=== PATIENT | female | born 1945 | race Caucasian/White ===

== ENCOUNTER 2021-03-24 14:23 | Day surgery (SDCO) | payer OTHER ==
[~2021-03-24] VITALS: Ht 154.9 cm; Wt 94.4 kg
[~2021-03-24 14:23] MED LIST: ACCUPRIL 5MG TAB5 MG PO; ALLOPURINOL100 MG PO; ASPIRIN EC81 MG PO; DECARA1250 MCG PO; HUMULIN R100 UNIT/1 SC; HYDROCODON-ACE1 EAC2 PO; LANTUS **100 UNITS/ SC; LASIX20 MG PO; METOPROLOL SUCC25 MG PO; PRAVACHOL20 MG PO; TRULICITY1.5 MG/0.5 SC; ZESTRIL2.5 MG PO
[2021-03-24 15:50] LABS: BASOPHIL 0.4 % (0-2); EOSINOPHIL 1.5 % (0-7); HCT 38.3 % (37.0-47.0); HGB 11.6 g/dl (12.5-16.0); LYMPHOCYTE 19.9 % (15-48); MCH 26.9 pg (25.0-31.0); MCHC 30.3 g/dL (32.0-36.0); MCV 88.7 fL (78.0-100.0); MONOCYTE 7.3 % (0-12); MPV 10.8 fL (6.0-9.5); NEUTROPHIL 70.1 % (41-80); NRBC 0; PLT 279 K/uL (150-400); RBC 4.32 M/uL (4.20-5.40); RDW 16.4 % (11.5-14.0); WBC 11.9 K/uL (4.0-10.5)
[2021-03-24 16:09] LABS: BILIRUBIN NEGATIVE (NEGATIVE); BLOOD NEGATIVE Ery/uL (NEGATIVE); CLARITY HAZY (CLEAR); COLOR YELLOW (YELLOW); GLUCOSE (U) NORMAL (NORMAL); LEUKOCYTES TRACE Leu/uL (NEGATIVE); NITRITE NEGATIVE (NEGATIVE); PROTEIN NEGATIVE (NEGATIVE); SPECIFIC GRAVITY 1.025 (1.001-1.030); UROBILINOGEN 0.2 mg/dL (0.2-1.0); pH 5.5 (5.0-9.0)
[2021-03-24 16:12] LABS: PRO-BNP 198 pg/mL (<125)
[2021-03-24 16:18] LABS: ALBUMIN 2.7 g/dL (3.4-5.0); BILIRUBIN - TOTAL 0.5 mg/dL (0.2-1.0); BUN/CREAT RATIO (CALC) 23.7 RATIO; C-REACTIVE PROTEIN 0.9 mg/dL (<=0.90); CREATININE 1.77 mg/dL (0.51-0.95); GLOBULIN (CALCULATION) 4.7 g/dL; MAGNESIUM 2.2 mg/dL (1.8-2.4); POTASSIUM 4.4 mmol/L (3.5-5.1); TOTAL PROTEIN 7.4 g/dL (6.4-8.2)
[2021-03-24 16:19] LABS: BACTERIA TRACE
[2021-03-24 16:40] LABS: LACTIC ACID 4.3 mmol/L (0.4-1.9)
[2021-03-25 06:17] LABS: BASOPHIL 0.5 % (0-2); EOSINOPHIL 0.9 % (0-7); HCT 30.5 % (37.0-47.0); HGB 9.7 g/dl (12.5-16.0); LYMPHOCYTE 6.8 % (15-48); MCH 27.5 pg (25.0-31.0); MCHC 31.8 g/dL (32.0-36.0); MCV 86.4 fL (78.0-100.0); MONOCYTE 7.9 % (0-12); MPV 10.3 fL (6.0-9.5); NEUTROPHIL 83.5 % (41-80); NRBC 0; PLT 183 K/uL (150-400); RBC 3.53 M/uL (4.20-5.40); RDW 16.3 % (11.5-14.0); WBC 10.1 K/uL (4.0-10.5)
[2021-03-25 08:08] LABS: ALBUMIN 2.4 g/dL (3.4-5.0); BILIRUBIN - TOTAL 0.5 mg/dL (0.2-1.0); CREATININE 1.46 mg/dL (0.51-0.95); POTASSIUM 4.2 mmol/L (3.5-5.1); TOTAL PROTEIN 6.4 g/dL (6.4-8.2)
[2021-03-25 08:10] LABS: C-REACTIVE PROTEIN 3.3 mg/dL (<=0.90); MAGNESIUM 1.9 mg/dL (1.8-2.4)
[2021-03-25] MEDS ORDERED: ELAVIL25 MG PO (15:52)
[2021-03-25] MEDS ORDERED: ELIQUIS5 MG PO (15:53)
[2021-03-25] MEDS ORDERED: LASIX20 MG PO (15:53)
[2021-03-25] MEDS ORDERED: LANTUS **100 UNITS/ SC ×2 (15:54→15:55)
[2021-03-25] MEDS ORDERED: ZESTRIL2.5 MG PO (15:55)
[2021-03-25] MEDS ORDERED: NITROQUIK SL0.4 MG SL (15:57)
[2021-03-25] MEDS ORDERED: HUMULIN R100 UNIT/1 SC (15:58)
--- NOTE | 2021-03-25 18:58 | NUR ---
03/25/21 Ms. Lucas and her sister share a home together. Ms. Lucas uses a wc for mobility as recommended by the Wound Care MD, Tommy Padron. PCP is Rema manzano. Ms. Lucas is modified independent with mobilty and ADLS. She does not currently use HH services and doesn't believe she will need HH at discharge.
--- NOTE | 2021-03-25 19:48 | NUR ---
REPORT GIVEN TO [facility], AWAITING TRANSFER OF PT TO UNIT.
[2021-03-26 07:17] LABS: BASOPHIL 0.6 % (0-2); EOSINOPHIL 2.6 % (0-7); HCT 31.6 % (37.0-47.0); HGB 9.9 g/dl (12.5-16.0); LYMPHOCYTE 22.8 % (15-48); MCHC 31.3 g/dL (32.0-36.0); MCV 86.1 fL (78.0-100.0); MONOCYTE 11.8 % (0-12); MPV 10.4 fL (6.0-9.5); NEUTROPHIL 61.7 % (41-80); NRBC 0; PLT 169 K/uL (150-400); RBC 3.67 M/uL (4.20-5.40); RDW 16.2 % (11.5-14.0); WBC 6.5 K/uL (4.0-10.5)
[2021-03-26 07:32] LABS: ALBUMIN 2.1 g/dL (3.4-5.0); BILIRUBIN - TOTAL 0.3 mg/dL (0.2-1.0); BUN/CREAT RATIO (CALC) 17.1 RATIO; CREATININE 1.11 mg/dL (0.51-0.95); GLOBULIN (CALCULATION) 4.5 g/dL; MAGNESIUM 1.7 mg/dL (1.8-2.4); PHOSPHORUS 2.7 mg/dL (2.6-4.7); TOTAL PROTEIN 6.6 g/dL (6.4-8.2)
[2021-03-27 06:20] LABS: BASOPHIL 0.4 % (0-2); EOSINOPHIL 3.4 % (0-7); HCT 31.3 % (37.0-47.0); HGB 9.7 g/dl (12.5-16.0); LYMPHOCYTE 29.9 % (15-48); MCV 87.2 fL (78.0-100.0); MONOCYTE 10.3 % (0-12); NEUTROPHIL 55.5 % (41-80); NRBC 0; PLT 169 K/uL (150-400); RBC 3.59 M/uL (4.20-5.40); RDW 16.1 % (11.5-14.0); WBC 8.1 K/uL (4.0-10.5)
[2021-03-27 06:46] LABS: BUN/CREAT RATIO (CALC) 17.1 RATIO; CREATININE 1.05 mg/dL (0.51-0.95); MAGNESIUM 2.1 mg/dL (1.8-2.4)
[2021-03-27] MEDS ORDERED: VANCOMYCIN HCL125 MG PO (11:31)
--- NOTE | 2021-03-27 12:38 | NUR ---
03/27/21 Ms. Lucas has been discharged. No discharge planning needs were identified.
[2021-03-28] MEDS ORDERED: AMOXICILLIN500 MG PO (14:47)
== END 2021-03-27 14:32 | disposition home health service (06) ==
LOC: FER 14:23 → FMS 03-25 04:45 → FTCU 03-25 04:45 → FMS 03-25 14:47
PROVIDERS: Emergency Medicine; Nurse Practitioner; ADMIT Internal Medicine
DX: A41.89 Other specified sepsis (principal); A04.72 Enterocolitis due to Clostridium difficile, not specified as recurrent; E11.621 Type 2 diabetes mellitus with foot ulcer; L97.519 Non-pressure chronic ulcer of other part of right foot with unspecified severity; I11.9 Hypertensive heart disease without heart failure; E11.65 Type 2 diabetes mellitus with hyperglycemia; K57.32 Diverticulitis of large intestine without perforation or abscess without bleeding; I25.10 Atherosclerotic heart disease of native coronary artery without angina pectoris; Z86.010 Personal history of colon polyps; Z86.718 Personal history of other venous thrombosis and embolism; Z79.01 Long term (current) use of anticoagulants; Z79.02 Long term (current) use of antithrombotics/antiplatelets; Z79.4 Long term (current) use of insulin; Z79.899 Other long term (current) drug therapy; Z88.1 Allergy status to other antibiotic agents; Z91.040 Latex allergy status; Z91.048 Other nonmedicinal substance allergy status; Z95.0 Presence of cardiac pacemaker; Z95.2 Presence of prosthetic heart valve; Z20.822 Contact with and (suspected) exposure to COVID-19
CPT/HCPCS: 36415; 36600; 71045; 80048; 80053; 81001; 82728; 82803; 82962; 83605; 83735; 83880; 84100; 84145; 84484; 85025; 86140; 87040; 87076; 87088; 87186; 87324; 87449; 87493; 94760; 97162; 97166; 97530-GP; 97535; G0378; J2543; J3370; J3475; J7030; J7050; U0002

== ENCOUNTER → 2021-05-27 | Day surgery (SDC) | payer OTHER ==
[~2021-05-27] VITALS: Ht 154.9 cm; Wt 94.4 kg
[~2021-05-27] MED LIST changes: +AMOXICILLIN500 MG PO; +ELAVIL25 MG PO; +ELIQUIS5 MG PO; +NITROQUIK SL0.4 MG SL; +VANCOMYCIN HCL125 MG PO; +VIBRAMYCIN100 MG PO
[2021-05-27 08:59] LABS: HCT 36.2 % (37.0-47.0); HGB 11.2 g/dl (12.5-16.0); MCHC 30.9 g/dL (32.0-36.0); MCV 84.2 fL (78.0-100.0); MPV 9.6 fL (6.0-9.5); RBC 4.3 M/uL (4.20-5.40); RDW 16.6 % (11.5-14.0); WBC 9.3 K/uL (4.0-10.5)
[2021-05-27 09:10] LABS: ALBUMIN 2.4 g/dL (3.4-5.0); BILIRUBIN - TOTAL 0.3 mg/dL (0.2-1.0); BUN/CREAT RATIO (CALC) 28.5 RATIO; CREATININE 1.23 mg/dL (0.51-0.95); GLOBULIN (CALCULATION) 5.2 g/dL; POTASSIUM 4.5 mmol/L (3.5-5.1); TOTAL PROTEIN 7.6 g/dL (6.4-8.2)
== END | disposition home or self-care (01) ==
LOC: FAS 08:01
PROVIDERS: Surgery
DX: K92.1 Melena (principal); D50.0 Iron deficiency anemia secondary to blood loss (chronic); K58.9 Irritable bowel syndrome, unspecified; K29.50 Unspecified chronic gastritis without bleeding; B96.81 Helicobacter pylori [H. pylori] as the cause of diseases classified elsewhere; I48.91 Unspecified atrial fibrillation; E78.5 Hyperlipidemia, unspecified; I12.9 Hypertensive chronic kidney disease with stage 1 through stage 4 chronic kidney disease, or unspecified chronic kidney disease; N18.9 Chronic kidney disease, unspecified; Z86.010 Personal history of colon polyps; Z95.1 Presence of aortocoronary bypass graft; Z95.2 Presence of prosthetic heart valve; Z79.01 Long term (current) use of anticoagulants; Z79.82 Long term (current) use of aspirin
CPT/HCPCS: 36415; 80053; J0690; J1610; J2250; J2704; J7120

== ENCOUNTER 2021-06-18 12:31 | Emergency (ER) | payer OTHER ==
[2021-06-18 13:53] LABS: BASOPHIL 0.4 % (0-2); EOSINOPHIL 1.1 % (0-7); HCT 38.6 % (37.0-47.0); HGB 11.5 g/dl (12.5-16.0); LYMPHOCYTE 17.5 % (15-48); MCH 25.7 pg (25.0-31.0); MCHC 29.8 g/dL (32.0-36.0); MCV 86.4 fL (78.0-100.0); MPV 9.7 fL (6.0-9.5); NEUTROPHIL 72.5 % (41-80); NRBC 0; PLT 211 K/uL (150-400); RBC 4.47 M/uL (4.20-5.40); RDW 17.1 % (11.5-14.0); WBC 11.4 K/uL (4.0-10.5)
[2021-06-18 14:42] LABS: ALBUMIN 2.7 g/dL (3.4-5.0); BILIRUBIN - TOTAL 0.3 mg/dL (0.2-1.0); BUN/CREAT RATIO (CALC) 15.7 RATIO; CREATININE 1.27 mg/dL (0.51-0.95); GLOBULIN (CALCULATION) 5.3 g/dL; POTASSIUM 4.3 mmol/L (3.5-5.1)
[2021-06-18] MEDS ORDERED: AUGMENTIN 875-1 EACH PO (16:50)
[2021-06-18] MEDS ORDERED: AUGMENTIN250 MG PO (16:59)
== END 2021-06-18 17:59 | disposition home or self-care (01) ==
LOC: FER 12:31
PROVIDERS: Emergency Medicine
DX: K57.33 Diverticulitis of large intestine without perforation or abscess with bleeding (principal); I10 Essential (primary) hypertension; E11.9 Type 2 diabetes mellitus without complications; I25.2 Old myocardial infarction; Z79.01 Long term (current) use of anticoagulants; Z79.82 Long term (current) use of aspirin; Z88.8 Allergy status to other drugs, medicaments and biological substances; Z91.048 Other nonmedicinal substance allergy status; Z91.040 Latex allergy status
CPT/HCPCS: 36415; 80053; 82270; 85025; J2543; Q9967

== ENCOUNTER 2021-08-13 09:32 | Inpatient (IN) | payer OTHER ==
[~2021-08-13] VITALS: Ht 154.9 cm; Wt 92.7 kg
[~2021-08-13 09:32] MED LIST changes: +AUGMENTIN 875-1 EACH PO; +AUGMENTIN250 MG PO
[2021-08-13 12:38] LABS: ALBUMIN 2.5 g/dL (3.4-5.0); ALKALINE PHOSHATASE 81 U/L (46-116); ALT 35 U/L (14-59); AST 55 U/L (15-37); BILIRUBIN - TOTAL 0.8 mg/dL (0.2-1.0); BUN 24 mg/dL (7-18); BUN/CREAT RATIO (CALC) 18.5 RATIO; C-REACTIVE PROTEIN >18.00 mg/dL (<=0.90); CHLORIDE 94 mmol/L (98-107); CO2 (BICARBONATE) 20 mmol/L (21-32); GLOBULIN (CALCULATION) 4.5 g/dL; GLUCOSE 267 mg/dL (74-106); POTASSIUM 4.9 mmol/L (3.5-5.1)
[2021-08-13 12:46] LABS: BILIRUBIN NEGATIVE (NEGATIVE); BLOOD 3+ Ery/uL (NEGATIVE); CLARITY CLEAR (CLEAR); COLOR YELLOW (YELLOW); GLUCOSE (U) 2+ mg/dL (NORMAL); LEUKOCYTES NEGATIVE Leu/uL (NEGATIVE); NITRITE NEGATIVE (NEGATIVE); PROTEIN 2+ mg/dL (NEGATIVE); SPECIFIC GRAVITY 1.025 (1.001-1.030); UROBILINOGEN 0.2 mg/dL (0.2-1.0)
[2021-08-13 13:04] LABS: BASOPHIL 0.2 % (0-2); EOSINOPHIL 0 % (0-7); HCT 37.3 % (37.0-47.0); HGB 10.9 g/dl (12.5-16.0); MCH 26.8 pg (25.0-31.0); MCHC 29.2 g/dL (32.0-36.0); MCV 91.6 fL (78.0-100.0); MPV 9.9 fL (6.0-9.5); NEUTROPHIL 82.3 % (41-80); NRBC 0; PLT 124 K/uL (150-400); RBC 4.07 M/uL (4.20-5.40); RDW 17.8 % (11.5-14.0); WBC 9.9 K/uL (4.0-10.5)
[2021-08-13 13:16] LABS: URINARY WBC RARE
[2021-08-13 13:19] LABS: BACTERIA TRACE
[2021-08-13 13:43] LABS: CORONAVIRUS 2019 SARS-COV-2 NEGATIVE (NEGATIVE); INFLUENZA A NAA NEGATIVE (NEGATIVE)
[2021-08-13] MEDS ORDERED: ACCUPRIL 5MG TAB5 MG PO (23:29)
[2021-08-13] MEDS ORDERED: DITROPAN5 MG PO (23:30)
[2021-08-13] MEDS ORDERED: NYSTATIN1 EAC2 TOP (23:30)
[2021-08-13] MEDS ORDERED: HUMULIN R100 UNIT/1 SC (23:39)
[2021-08-14 06:26] LABS: BASOPHIL 0.3 % (0-2); EOSINOPHIL 0.1 % (0-7); HCT 32.2 % (37.0-47.0); HGB 10.3 g/dl (12.5-16.0); MONOCYTE 12.7 % (0-12); MPV 10.2 fL (6.0-9.5); NEUTROPHIL 76.4 % (41-80); NRBC 0; PLT 154 K/uL (150-400); RBC 3.81 M/uL (4.20-5.40); RDW 17.3 % (11.5-14.0); WBC 10.7 K/uL (4.0-10.5)
[2021-08-14 06:31] LABS: MCV 84.5 fL (78.0-100.0)
[2021-08-14 06:47] LABS: BUN 25 mg/dL (7-18); BUN/CREAT RATIO (CALC) 19.8 RATIO; C-REACTIVE PROTEIN >18.00 mg/dL (<=0.90); CHLORIDE 97 mmol/L (98-107); CO2 (BICARBONATE) 23 mmol/L (21-32); CREATININE 1.26 mg/dL (0.51-0.95); GLUCOSE 243 mg/dL (74-106); POTASSIUM 4.4 mmol/L (3.5-5.1)
[2021-08-14 06:48] LABS: CPK 486 U/L (26-192)
--- NOTE | 2021-08-14 16:04 | NUR ---
PT REPORTS THAT SHE RESIDES WITH HER SISTER. SHE HAS A WHEELCHAIR, AND ROLLING WALKER. HER SISTER CHANGES THE BANDAGES ON THE WOUND ON HER FOOT DAILY. PT IS NOT CURRENT WITH ANY HH.
--- NOTE | 2021-08-14 16:15 | NUR ---
PT HAS [facility]OSEN [facility] HAVE ACCEPTED. PLEASE NOTIFY [facility] PT DISCHARGE.
--- NOTE | 2021-08-14 17:25 | NUR ---
CALLED [facility]ARE AND LEFT MESSAGE FOR TO SEE PATIENT.
[2021-08-15 06:28] LABS: BASOPHIL 0.4 % (0-2); EOSINOPHIL 1.3 % (0-7); HCT 31.2 % (37.0-47.0); LYMPHOCYTE 15.8 % (15-48); MCH 26.8 pg (25.0-31.0); MCHC 32.1 g/dL (32.0-36.0); MCV 83.6 fL (78.0-100.0); MONOCYTE 12.1 % (0-12); MPV 10.5 fL (6.0-9.5); NEUTROPHIL 69.5 % (41-80); NRBC 0; PLT 170 K/uL (150-400); RBC 3.73 M/uL (4.20-5.40); RDW 17.2 % (11.5-14.0); WBC 10.2 K/uL (4.0-10.5)
[2021-08-15 09:00] LABS: BUN 27 mg/dL (7-18); C-REACTIVE PROTEIN >18.00 mg/dL (<=0.90); CHLORIDE 101 mmol/L (98-107); CO2 (BICARBONATE) 18 mmol/L (21-32); CPK 172 U/L (26-192); CREATININE 1.18 mg/dL (0.51-0.95); GLUCOSE 212 mg/dL (74-106); POTASSIUM 4.2 mmol/L (3.5-5.1)
[2021-08-16 06:42] LABS: BASOPHIL 0.3 % (0-2); EOSINOPHIL 0 % (0-7); HCT 32.7 % (37.0-47.0); HGB 10.3 g/dl (12.5-16.0); LYMPHOCYTE 9.9 % (15-48); MCH 26.4 pg (25.0-31.0); MCHC 31.5 g/dL (32.0-36.0); MCV 83.8 fL (78.0-100.0); MONOCYTE 5.2 % (0-12); MPV 10.9 fL (6.0-9.5); NEUTROPHIL 83.5 % (41-80); NRBC 0; PLT 222 K/uL (150-400); RDW 17.2 % (11.5-14.0); WBC 10.7 K/uL (4.0-10.5)
[2021-08-16 06:53] LABS: ALBUMIN 1.9 g/dL (3.4-5.0); ALKALINE PHOSHATASE 80 U/L (46-116); ALT 31 U/L (14-59); AST 29 U/L (15-37); BILIRUBIN - TOTAL 0.3 mg/dL (0.2-1.0); BUN 26 mg/dL (7-18); BUN/CREAT RATIO (CALC) 24.5 RATIO; C-REACTIVE PROTEIN >18.00 mg/dL (<=0.90); CHLORIDE 99 mmol/L (98-107); CO2 (BICARBONATE) 23 mmol/L (21-32); CREATININE 1.06 mg/dL (0.51-0.95); GLUCOSE 276 mg/dL (74-106); POTASSIUM 4.8 mmol/L (3.5-5.1); TOTAL PROTEIN 6.9 g/dL (6.4-8.2)
--- NOTE | 2021-08-16 15:16 | NUR ---
SPOKE TO DR HUNTER REGARDING DIFFICULTY OBTAINING AND MAINTAINING ADEQUATE IV ACCESS, EVEN WITH ULTRASOUND. ORDER PLACED PER DR HUNTER THAT PATIENT CAN BE WITHOUT IV ACCESS.
[2021-08-17 05:51] LABS: BASOPHIL 0.3 % (0-2); EOSINOPHIL 0.6 % (0-7); HCT 32.2 % (37.0-47.0); HGB 10.1 g/dl (12.5-16.0); LYMPHOCYTE 15.8 % (15-48); MCH 26.4 pg (25.0-31.0); MCHC 31.4 g/dL (32.0-36.0); MCV 84.1 fL (78.0-100.0); MONOCYTE 6.9 % (0-12); MPV 10.1 fL (6.0-9.5); NEUTROPHIL 75.1 % (41-80); NRBC 0.2; PLT 254 K/uL (150-400); RBC 3.83 M/uL (4.20-5.40); RDW 17.2 % (11.5-14.0); WBC 15.7 K/uL (4.0-10.5)
[2021-08-17 06:16] LABS: BUN/CREAT RATIO (CALC) 30.8 RATIO; C-REACTIVE PROTEIN 8.3 mg/dL (<=0.90); CREATININE 1.07 mg/dL (0.51-0.95); POTASSIUM 3.8 mmol/L (3.5-5.1)
[2021-08-17] MEDS ORDERED: PREDNISONE 20MG20 MG PO (07:51)
[2021-08-17] MEDS ORDERED: CYCLOBENZAPRINE5 MG PO (13:48)
[2021-08-17] MEDS ORDERED: KEFLEX250 MG PO (16:04)
[2021-08-18 06:09] LABS: BASOPHIL 0.3 % (0-2); EOSINOPHIL 0.2 % (0-7); HCT 33.2 % (37.0-47.0); HGB 10.6 g/dl (12.5-16.0); LYMPHOCYTE 17.4 % (15-48); MCH 26.8 pg (25.0-31.0); MCHC 31.9 g/dL (32.0-36.0); MCV 84.1 fL (78.0-100.0); MONOCYTE 7.1 % (0-12); MPV 10.3 fL (6.0-9.5); NEUTROPHIL 72.6 % (41-80); NRBC 0.1; PLT 286 K/uL (150-400); RBC 3.95 M/uL (4.20-5.40); RDW 17.5 % (11.5-14.0); WBC 16.3 K/uL (4.0-10.5)
[2021-08-18 06:34] LABS: C-REACTIVE PROTEIN 4.2 mg/dL (<=0.90); CREATININE 0.98 mg/dL (0.51-0.95); POTASSIUM 4.2 mmol/L (3.5-5.1)
[2021-08-19 06:04] LABS: BASOPHIL 0.4 % (0-2); EOSINOPHIL 0.6 % (0-7); HCT 36.9 % (37.0-47.0); HGB 10.9 g/dl (12.5-16.0); LYMPHOCYTE 14.8 % (15-48); MCH 26.1 pg (25.0-31.0); MCHC 29.5 g/dL (32.0-36.0); MONOCYTE 7.5 % (0-12); MPV 9.8 fL (6.0-9.5); NEUTROPHIL 73.7 % (41-80); NRBC 0.1; PLT 279 K/uL (150-400); RBC 4.17 M/uL (4.20-5.40); WBC 14.2 K/uL (4.0-10.5)
[2021-08-19 06:07] LABS: MCV 88.5 fL (78.0-100.0)
[2021-08-19 06:23] LABS: C-REACTIVE PROTEIN 2.5 mg/dL (<=0.90); POTASSIUM 3.8 mmol/L (3.5-5.1)
== END 2021-08-19 18:45 | disposition other institution (70) | DRG 545 ==
LOC: FER 09:32 → FMS 15:10
PROVIDERS: Emergency Medicine; Internal Medicine; ADMIT Allergy & Immunology Allergy
DX: M35.3 Polymyalgia rheumatica (principal); A40.8 Other streptococcal sepsis; I33.0 Acute and subacute infective endocarditis; M62.82 Rhabdomyolysis; E87.1 Hypo-osmolality and hyponatremia; L97.419 Non-pressure chronic ulcer of right heel and midfoot with unspecified severity; Z20.822 Contact with and (suspected) exposure to COVID-19; I12.9 Hypertensive chronic kidney disease with stage 1 through stage 4 chronic kidney disease, or unspecified chronic kidney disease; E11.22 Type 2 diabetes mellitus with diabetic chronic kidney disease; N18.9 Chronic kidney disease, unspecified; L89.151 Pressure ulcer of sacral region, stage 1; E11.40 Type 2 diabetes mellitus with diabetic neuropathy, unspecified; E11.621 Type 2 diabetes mellitus with foot ulcer; I25.10 Atherosclerotic heart disease of native coronary artery without angina pectoris; Z95.1 Presence of aortocoronary bypass graft; Z95.0 Presence of cardiac pacemaker; Z95.2 Presence of prosthetic heart valve; Z90.49 Acquired absence of other specified parts of digestive tract; Z79.01 Long term (current) use of anticoagulants; Z79.4 Long term (current) use of insulin; Z79.899 Other long term (current) drug therapy; Z79.82 Long term (current) use of aspirin
CPT/HCPCS: 36415; 71045; 73030; 73200; 80048; 80053; 80202; 81001; 82550; 82962; 83036; 83605; 85025; 86140; 87040; 97162; 97166; 97530; 97530-GP; 97535; J0696; J1815; J2270; J2405; J2543; J3370; J7030; J7050; J7120; J7512; U0002

== ENCOUNTER 2021-08-29 23:45 | Emergency (ER) | payer OTHER ==
[~2021-08-29 23:45] MED LIST changes: +CYCLOBENZAPRINE5 MG PO; +DITROPAN5 MG PO; +KEFLEX250 MG PO; +NYSTATIN1 EAC2 TOP; +PREDNISONE 20MG20 MG PO
== END 2021-08-30 00:30 | disposition home or self-care (01) ==
LOC: FER 23:45
DX: Z45.2 Encounter for adjustment and management of vascular access device (principal); I10 Essential (primary) hypertension; I25.10 Atherosclerotic heart disease of native coronary artery without angina pectoris; Z91.048 Other nonmedicinal substance allergy status
CPT/HCPCS: J1642